=== PATIENT | male | born 1995 | race Caucasian/White ===

== ENCOUNTER 2019-10-16 16:00 | Outpatient (RCR) | payer SELFPAY ==
--- NOTE | 2019-08-13 12:24 | HP.OTEVAL ---
Patient's Visit Information JUVE SOUZA is a 23 year old M, referred to Occupational Therapy by DANY SHARIF, with a diagnosis of Spastic Paraplegia; Suicidal Ideation with attempt. Date of Evaluation: 08/13/19 Occupational Therapist: Lorraine Walker, EDWINR/L - Subjective Subjective: Juve arrived with mother, Ijeoma, and sister, Chlua. Juve is youngest of 6 children with three sisters and two brothers. He was referred to OT s/p suicide attempt that resulted in 9 day stay at [facility] in [place], [place]. Ideation and attempt was with knife. No self-harm occurred as police called and mother able to get knife prior to injury. Self-mutilation present as he often picks and has scars on forearms at times to point of bleeding. 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 He is currently on waitlist for [employer] Workshop for Sunday and Wednesdays. Mother noted suicidal ideations were relatively new and he has since been diagnosed with depression and anxiety. - ADLs Grooming: Shave Miscellaneous: Do crafts Comments: Juve exhibits poor participation in leisure pursuits prior and s/p suicide attempt. Family note changes that occured this year in mental health and unsure of what cause as he previously did not show these signs. Juve noted, with prompting, he likes music ([employer] music), remote control tpys, coloring, driving tractor, and mowing lawn. He was diagnosed with depression and anxiety. He is not regularly participating in ADL/IADls or compelting coping related skills. He did start / workshop with [employer] in [employer]. He is on waitlist for [facility] workshop. Due to poor particpation needs increased healthy habit training and coping skills. - Objective Objective/Observation: Lanny lawton strength of UE WFL. Concerns: CBT related talk therapy needs to be first and foremost with [facility]. Ot to work on coping related and other skills initiated in evaluation. Would also benefit from potential of hippotherapy for horse assisted therapy. OT already discussed with mother. She is to look into it at [facility]. - ROM Shoulder: WFL Elbow: WFL Forearm: WFL Wrist: WFL MP: WFL PIP: WFL DIP: WFL - Strength Shoulder: WFL Elbow: WFL Forearm: WFL Wrist: WFL Judicial Registrar: R 56, L 44 Lateral Pinch: R 22, L 20 Tripod Pinch: R 19, L 15 - Cognitive Skills Follows Directions: Yes Short Term Memory Impaired: Yes Cognitive Comments: MoCA: 09/10. He completed school until 15 y/o but did not move past 2nd grade level as per mother's report. Attempts all tasks asked of him but cognitive deficits noted. He is able to draw [place] but draws triangle instead of square when prompts. When prompted second time able to complete correct drawing of square. He attempts to draw clock but is unable to problem solve strategy to complete completion of clock when running out of room for number placement. Often redirects to mother to see what numbers are needed to completed clock task. Increased difficulty with abstraction tasks such as number and simple math related tasks. On MoCA he is able to sequence two step tasks for numbers to letter task but exhibits increased deficits with language and short-term memory tasks. When given more than simple 1-2 step commands he is unable to complete multi-step directions. - Attention Attention: Poor - Quick DASH-Disab of Arm,Shoulder& Hand Quick DASH Score: 9.0900 - Goals Goal:: Juve to be (i) to complete daily scheduled to promote participation in daily self-care routine to promote hygiene and skills needed to promote increased health and routines 4/5 trials 80% of the time by d/c. Goal:: Juve to be (I) to recognize emotions that cause negative feelings to promote increased self-regulation strategies and decrease suicidal thoughts and ideations 4/5 trials 80% of the time by d/c. Goal:: Juve to be (I) to recognize and list 5-7 things he likes about self to promote needed self-esteem to promote self-awareness and decreased suicidal ideations 4/5 trials 80% of the time by d/c. Goal:: Juve to be (i) to complete 4-5 coping strategies to promote increased coping skills during times of feeling upset 4/5 trials 80% of the time to promote increased ability to complete daily ADL/IADLS tasks. 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 Poor gait is baseline, but mother noted increase in symptoms over the last two months in which he is tripping more regularly. He was referred to outpatient OT and PT due to suicidal ideation and attempt occurring June,. He subsequently spent 9 days on inpatient psychiatric rehabilitation at [facility] in [place] He was not participation in group sessions. He exhibits poor ADL and IADLs participation with lack of healthy routines and coping skills. He would benefit from 1x weekly OT appointment for the next 4 weeks to promote coping skills, problem solving, grounding, anger management, and ability to complete calming strategies for times when he is feeling he may hurt himself. OT has also recommended that first and foremost he needs to continue CBT with trained psychologist which mother noted they are receiving at [facility] as well as hippotherapy for further animal- assisted therapy services. Rehabilitation Potential: Good - Anticipated Interventions Anticipated Interventions: A/AAROM/PROM, Strengthening, Edema Control, Joint Protection/Energy Conservation, Ergonomic Education, Cognitive Skills, ADL Training, Caregiver Training, Home Program Other Interventions: Mental Health: Coping Skills, problem-solving, anger management, and grounding skills. - Visit Plan Frequency: 1x/Week Duration: 4 Weeks General Plan: OT to be completed to promote health routines and coping skills as well as anger management, problem solving, and general strategies to promote increased participation in daily activities including leisure pursuits. TEXT: Thank you for the opportunity to evaluate your patient. For Medicare and Medicare HMO plans, please review the plan of care and approve it. It will need to be FAXED BACK to us at [phone] for Medicare purposes. Please let me know if there are questions or concerns regarding this plan of care. Physician Signature: Date:
--- NOTE | 2019-08-13 13:02 | HP.PTEVAL ---
Patient's Visit Information DORENE SOUZA is a 23 year old M referred to Physical Therapy by DANY SHARIF with a diagnosis of LE spasticity. Date of Evaluation: 08/13/19 Physical Therapist: Kelvin Wooten, PT, ATC - Visit Plan Frequency: 1x/Week Duration: 4 Weeks Plan: Edu pt and issue a HEP for B LE strengthening, balance and proprio, core stab ex's, and gait training.. - Subjective Findings: Pt was born with spastic paraplegia. Pt has been able to ambulate, but his walking is getting worse. Pt has most difficulty with ambulation after sitting for prolonged periods of time. Pt has good sensation in his feet, and no LE tingling or numbness. Pt has suffered several falls over the past 6 mos, greater than 10. Pt last fell a couple weeks ago where he injured his R ankle. Pt has had xrays, no fracture. Pt has intolerance for prolonged ambulation. Pt reports he walks on his toes, and sometimes drags his es which is what causes the falls. Pt is not in pain at this time. - Objective Neuro: B LE sensation is WNL to light touch. B patellar reflex= 3+/3. MMT: B LE's 4/5 throughout. Gait: Pt ambulates with a very unsteady gait pattern. Pt is very unstable amd reached for the wall on multiple occasions. - Goals Goal 1:: I with HEP Goal Time Frame: 5 visits - Rehabilitation Potential Physical Therapy Diagnosis: Pt has LE weakness and an unsteady gait paittern secondary to neurological pathology - Anticipated Interventions Patient/Client Instruction: Educate patient on: Condition, Plan of Care For the Purpose of:: To improve self management Therapeutic Exercise to Include: Strength training, Endurance training, Balance training, Gait and locomotor training, Dynamic Lumbar Stabilization For the Purpose of:: To improve muscle performance and motor function, To improve gait and locomotor functions Thank you for the opportunity to evaluate your patient. For Medicare and Medicare HMO plans, please review the plan of care and approve it. It will need to be FAXED BACK to us at [phone] for Medicare purposes. For Medicare only, by signing this I certify the plan of care. Please let me know if there are questions or concerns regarding this plan of care. Physician Signature: Date:
--- NOTE | 2019-09-18 18:44 | HP.PTDCSUM ---
HP - PT D/C Summary It has been my pleasure to treat DORENE SOUZA under orders from DANY SHARIF, for the diagnosis of LE spasticity for a total of 5 visit(s). Discharge Date: Please see the following information for a summary of their discharge status. - Subjective Subjective: Pt notes he is better sometimes, and worse sometimes. - Overall Improvement % Improvement: 40 - Objective Objective/Function: Pt is now I with HEP. Gait has improved at pt ambulated greater than 120' with CGA without LOB. Added HS, gastroc, and hip flexor stretch to HEP. Rx goals achieved - Goals Goal 1:: I with HEP Goal Progress: Goal Met - Plan Plan: Discharge - D/C Information If there are questions or concerns regarding this patient's physical therapy, please feel free to call me at [phone]. Thank you for the referral of this patient. Sincerely, Kelvin Wooten, PT, ATC
--- NOTE | 2019-09-26 12:37 | HP.OTREVAL ---
DANY SHARIF, It has been my pleasure to treat JUVE SOUZA over the last 5 visits for Spastic Paraplegia; Suicidal Ideation with attempt. Please see the progress note below for an update on the occupational therapy plan of care! Subjective: Arrived with mother and sister 12 mins late. Completed tx in large OT area. He completed 3x grateful or things he did well. Mom helped to write. Objective/Function: Completed reassessment on this date of 09/25/19. Completed MoCA assessment for version 8.2 and results as follows: . This score indicates cognitive deficits. Juve continues to exhibit increased executive functioning and memory deficits that are congenital. He perseverates on tasks that are unpreferred when presents. He exhibits poor coping skills and further training is needed. Juve is able to complete Zones of Regulation curriculum. He understands color concept of Zones curriculum and is able to identify basic emotions in each color category of the curriculum. However, he is unable to complete emotional recognition consistently for himself or others and has increased difficulty in placing himself in the correct color as he often says he is in the green zone when at times he is likely in blue zones. Further training needed. Juve does not recognize emotions of self or others or how his actions impact others around him. Further training and social awareness needed. Additionally, he is unable to recognize things he likes about himself. He is to continues training with psychologist but OT to further work with Zones curriculum and educate mother and sister to help promote further implementation at home. Plan Frequency: 1x/Week Duration: 4 Weeks Visits in this POC: 5 Plan: continue POC for 1x weekly appointment for the next 4 weeks. Focus on Zones of Regulation curriculum to promote emotional and self-regulation to promote coping skills, self-esteem, and increased quality of life. Goals - Goals Goal:: uJve to be (i) to complete daily scheduled to promote participation in daily self-care routine to promote hygiene and skills needed to promote increased health and routines 4/5 trials 80% of the time by d/c. Goal:: Juve to be (I) to recognize emotions that cause negative feelings to promote increased self-regulation strategies and decrease suicidal thoughts and ideations 4/5 trials 80% of the time by d/c. - progressing with tasks but continues to exhibit increased difficulty with recognizing how others feel when he is feeling these emotions or what is trigging emotions. Goal:: Juve to be (I) to recognize and list 5-7 things he likes about self to promote needed self-esteem to promote self-awareness and decreased suicidal ideations 4/5 trials 80% of the time by d/c. - cannot list things he directly likes about himself but can list things he is grateful to have. Goal:: Juve to be (i) to complete 4-5 coping strategies to promote increased coping skills during times of feeling upset 4/5 trials 80% of the time to promote increased ability to complete daily ADL/IADLS tasks. - have discussed 3 at this time but is not implementing. Anticipated Interventions Anticipated Interventions: A/AAROM/PROM, Strengthening, Edema Control, Joint Protection/Energy Conservation, Ergonomic Education, Cognitive Skills, ADL Training, Caregiver Training, Home Program Other Interventions: Mental Health: Coping Skills, problem-solving, anger management, and grounding skills. Please do not hesitate to contact me at [phone] by phone or if you have questions or concerns regarding this new plan of care! Sincerely, Lorraine Walker, OTR/L
--- NOTE | 2019-10-16 18:13 | OTREVAL_ITS ---
DANY SHARIF, It has been my pleasure to treat JUVE SOUZA over the last 8 visits for Spastic Paraplegia; Suicidal Ideation with attempt. Please see the progress note below for an update on the occupational therapy plan of care! Subjective: Arrived with mom. Treatment in open OT area. He noted he had to work today and did something new but unable to recall name. Noted not using visual charts or using Zone of regulation tasks. He did not have list of things he liked of himself. Carryover appears minimal. He has completed most zones worksheets with OT but no carryover at home. Objective/Function: Completed reassessment on this date 10/16/19 and results as follows: MoCa 8.3: 10/11. Juve is able to recall zone categories and what they stand for but is having difficulty recognizing when he is in each zone. He is not completing use of picture charts at this time or Zones when at home. Juve in regards to Zones-Maybe if I use it I'll know more about it. Plan Frequency: 1x/Week Duration: 4 Weeks Visits in this POC: 9 Plan: continue POC with one follow up in 2-3 weeks. Mother has not been unable to find book and doesn't have anyone in family that completes online shopping due to [employer] rastafarian. OT has tried to explain Zones Curriculum and referred her to get book through interlibrary loan from library, but mother have been unable to find. OT has further made copies of all handouts for mother to have at least handouts at home. Juve is not using picture schedules. Carryover has been minimal, and they are to work on zones techniques as educated on by OT at home prior to follow up in 3 weeks. If carry through continues to be lacking discharge is tentative. Goals - Goals Goal:: Juve to be (i) to complete daily scheduled to promote participation in daily self-care routine to promote hygiene and skills needed to promote increased health and routines 4/5 trials 80% of the time by d/c. Goal:: Juve to be (I) to recognize emotions that cause negative feelings to promote increased self-regulation strategies and decrease suicidal thoughts and ideations 4/5 trials 80% of the time by d/c. - progressing with tasks but continues to exhibit increased difficulty with recognizing how others feel when he is feeling these emotions or what is trigging emotions. Goal:: Juve to be (I) to recognize and list 5-7 things he likes about self to promote needed self-esteem to promote self-awareness and decreased suicidal ideations 4/5 trials 80% of the time by d/c. - cannot list things he directly likes about himself but can list things he is grateful to have. Goal:: Juve to be (i) to complete 4-5 coping strategies to promote increased coping skills during times of feeling upset 4/5 trials 80% of the time to promote increased ability to complete daily ADL/IADLS tasks. - have discussed 3 at this time but is not implementing. Anticipated Interventions Anticipated Interventions: A/AAROM/PROM, Strengthening, Edema Control, Joint Protection/Energy Conservation, Ergonomic Education, Cognitive Skills, ADL Training, Caregiver Training, Home Program Other Interventions: Mental Health: Coping Skills, problem-solving, anger management, and grounding skills. Please do not hesitate to contact me at [phone] by phone or if you have questions or concerns regarding this new plan of care! Sincerely, Lorraine Walker, OTR/L
--- NOTE | 2019-11-11 13:58 | HP.OTDCSUM_ITS ---
HP - OT D/C Summary It has been my pleasure to treat JUVE SOUZA under orders from DANY SHARIF, for the diagnosis of Spastic Paraplegia; Suicidal Ideation with attempt for a total of 8 visit(s). Please see the following information for a summary of their discharge status. - Objective Objective/Function: Completed reassessment on this date 10/16/19 and results as follows: MoCa 8.3: 10/11. Juve is able to recall zone categories and what they stand for but is having difficulty recognizing when he is in each zone. He is not completing use of picture charts at this time or Zones when at home. Juve in regards to Zones-Maybe if I use it I'll know more about it. - Goals Patient Goals: Regain Mobility, Be More Independent in ADLS, Resume Former Household Responsibilities (Cooking,Cleaning,Yard, etc.), Resume Hobbies Other: Develop in healthy coping skills, leisure pursuits, and problem solving. Goal:: Juve to be (i) to complete daily scheduled to promote participation in daily self-care routine to promote hygiene and skills needed to promote increased health and routines 4/5 trials 80% of the time by d/c. Goal:: Juve to be (I) to recognize emotions that cause negative feelings to promote increased self-regulation strategies and decrease suicidal thoughts and ideations 4/5 trials 80% of the time by d/c. - progressing with tasks but continues to exhibit increased difficulty with recognizing how others feel when he is feeling these emotions or what is trigging emotions. Goal:: Juve to be (I) to recognize and list 5-7 things he likes about self to promote needed self-esteem to promote self-awareness and decreased suicidal ideations 4/5 trials 80% of the time by d/c. - cannot list things he directly likes about himself but can list things he is grateful to have. Goal:: Juve to be (i) to complete 4-5 coping strategies to promote increased coping skills during times of feeling upset 4/5 trials 80% of the time to promote increased ability to complete daily ADL/IADLS tasks. - have discussed 3 at this time but is not implementing. - Plan Plan: Due to increased behavioral issues at home he will be discharged as methods have been exhausted. Behavioral issues have been ongoing since childhood but increased mental health concerns have exacerbated symptoms. OT has worked on getting behavioral /reward charts set up but mother notes that they are unhelpful as he will not follow. He refuses to use basic self-care charts to promote well-being and hygiene. Zones of Regulation have been implemented to promote continued emotional and self-regulation as well as promoting recognizing and coping with emotions. He is able to recognize four categories and what emotions are in each category but has increased difficulty recognizing when he is feeling some of these emotions and how his actions affect himself and others. He often does not want to talk of how his emotions impact those around him as he becomes upset and perseveres on various topics with inability to exhibit the cognitive flexibility needed to redirect emotions and find appropriate solutions. However, he is often participative in sessions with OT but mother noted increased defiance when at home. Mother has been provided resources to continue to attempt to implement tasks and carry over Zones concepts at home. He is continuing with counseling and counseling needs to be priority due to ongoing mental illness. OT has provided [facility] information at beginning of treatment, but mother has not yet investigated these services. She was strongly encouraged to look into [facility] at this time for additional resources. [facility] social work has been provided contact information as mother, Ijeoma, noted that she would be willing to talk with them. Due to inconsistent carryover Juve will be discharged from therapy at this time. - D/C Information If there are questions or concerns regarding this patient's occupational therapy, please fell free to call me at [phone]. Thank you for the referral of this patient. Sincerely, Lorraine Walker, OTR/L
--- NOTE | 2019-11-17 15:48 | CASEMGMT ---
Social Work Consult from Sharon Walker OT at [facility] for resources. Attempted to contact patient mother, Ijeoma at [phone]. Ijeoma is guardian for patient. Voicemail left encouraging Ijeoma to contact this clinical social worker back. Batool LOPES, GABBY
--- NOTE | 2019-11-18 16:03 | CM.ED ---
Social Work Telephone call from patient mother, Ijeoma. Introduced self as well as manager social services role. Ijeoma stating that patient has been down and depressed. Patient is already connected with counseling services and attends a workshop 3 times a week. Ijeoma stating to be supportive for patient and to check in with patient often. Educated Ijeoma on [facility] supports and options. Ijeoma planning to contact [facility]. Active listening and support provided. [employer] LOPES, GABBY
== END 2019-10-16 19:00 | disposition home or self-care (01) ==
LOC: OT 16:00
PROVIDERS: Family Provider Family Medicine; PCP Family Medicine
DX: G11.4 Hereditary spastic paraplegia (principal)
CPT/HCPCS: 97110; 97161; 97166; 97168; 97530